=== PATIENT | female | born 1995 | race Caucasian/White ===

== ENCOUNTER 2016-10-14 17:25 | Emergency (ER) | payer MEDICAID | END 2016-10-14 19:04 | disposition home or self-care (01) | DX: N30.01 Acute cystitis with hematuria (principal); F17.200 Nicotine dependence, unspecified, uncomplicated ==

== ENCOUNTER 2017-07-28 13:45 | Emergency (ER) | payer MEDICAID ==
[2017-07-28 14:11] LABS: BILIRUBIN,URINE NEGATIVE (NEGATIVE)
[2017-07-28 14:13] LABS: UA CHARGE (STRIP ONLY) YES; UR CULTURE IF IND NOT INDICATED
--- NOTE | 2017-07-28 14:20 | ED Physician Documentation ---
PD HPI FEMALE - Stated complaint Stated Complaint: FEMALE - Chief complaint Chief Complaint: Abd Pain - History obtained from History obtained from: Patient - History of Present Illness Timing - onset: How many days ago (3) Timing - duration: Days (3) Timing - details: Gradual onset, Still present Associated symptoms: Chest/shoulder pain, Pelvic pain, Vaginal discharge, Dysuria Contributing factors: No: Similar symptoms before: Has not had sx before Recently seen: Not recently seen - Additional information Additional information: 22 y/o female has developed pain in the right lower quadrant/suprapubic area with nausea and chest pain. She is mid cycle and does not have a history of ovarian cyst. She is active with her boyfriend and does not use condoms. She is concerned about STD and UTI. Review of Systems Constitutional: reports: Myalgias, Fatigue. denies: Fever, Chills Eyes: denies: Decreased vision Ears: denies: Ear pain Nose: denies: Rhinorrhea / runny nose, Congestion Throat: denies: Dental pain / toothache, Sore throat Cardiac: denies: Chest pain / pressure, Palpitations Respiratory: denies: Dyspnea, Cough GI: reports: Nausea. denies: Abdominal Pain, Constipation, Diarrhea : reports: Frequency, Discharge. denies: Dysuria, Vaginal bleeding Skin: denies: Rash Musculoskeletal: denies: Neck pain, Back pain, Extremity pain PD PAST MEDICAL HISTORY - Past Medical History Psych: Anxiety - Past Surgical History Past Surgical History: No - Present Medications Home Medications: Ambulatory Orders Medication Instructions Recorded Confirmed No Known Home Medications [No 07/28/17 07/28/17 Known Home Medications] - Allergies Allergies/Adverse Reactions: Allergies Allergy/AdvReac Type Severity Reaction Status Date / Time No Known Drug Allergies Allergy Verified 08/20/15 19:44 - Social History Does the pt smoke?: Yes Smoking Status: Current every day smoker Does the pt drink ETOH?: No Does the pt have substance abuse?: No PD ED PE NORMAL - Vitals Vital signs reviewed: Yes (hypertensive) - General General: Alert and oriented X 3, No acute distress, Well developed/nourished - HEENT HEENT: Atraumatic, PERRL, EOMI - Neck Neck: Supple, no meningeal sign - Cardiac Cardiac: RRR, No murmur - Respiratory Respiratory: No respiratory distress, Clear bilaterally - Abdomen Abdomen: Normal bowel sounds, Soft, Non tender - Female Female : Juvenile Justice Officer present (Charleen), Other (There is a thin white discharge and the cervix is not friable. There is no cervical mucopus and on bimanual exam there is no cervical motion tenderness. ) - Back Back: No CVA TTP, No spinal TTP - Derm Derm: Normal color, No rash - Extremities Extremities: No deformity, No edema - Neuro Neuro: Alert and oriented X 3, No motor deficit, No sensory deficit, Normal speech - Psych Psych: Normal mood, Normal affect Results - Vitals Vitals: Vital Signs - 24 hr 07/28/17 13:50 Temperature 36.6 C Heart Rate 98 Respiratory 18 Rate Blood Pressure 137/87 H O2 Saturation 97 Oxygen O2 Source Room air - Labs Labs: Laboratory Tests 07/28/17 07/28/17 07/28/17 14:00 14:00 14:35 WBC 4.6 L RBC 4.57 Hgb 13.7 Hct 40.4 MCV 88.2 MCH 30.0 MCHC 34.0 RDW 12.5 Plt Count 248 MPV 7.4 L Neut # 2.5 Lymph # 1.4 L [place] # 0.5 Eos # 0.2 Baso # 0.0 Absolute Nucleated RBC 0.00 Nucleated RBC % 0.1 Sodium Potassium Chloride Carbon Dioxide Anion Gap BUN Creatinine Estimated GFR (MDRD) Glucose Calcium Total Bilirubin AST ALT Alkaline Phosphatase Total Protein Albumin Globulin Albumin/Globulin Ratio Lipase Urine Color YELLOW Urine Clarity CLEAR Urine pH 6.0 Ur Specific [place] 1.025 1.020 Urine Protein NEGATIVE Urine Glucose (UA) NEGATIVE Urine Ketones NEGATIVE Urine Occult Blood NEGATIVE Urine Nitrite NEGATIVE Urine Bilirubin NEGATIVE Urine Urobilinogen 0.2 (NORMAL) Ur Leukocyte Esterase NEGATIVE Ur Microscopic Review NOT INDICATED Urine Culture Comments NOT INDICATED Urine HCG, Qual NEGATIVE 07/28/17 14:35 WBC RBC Hgb Hct MCV MCH MCHC RDW Plt Count MPV Neut # Lymph # [place] # Eos # Baso # Absolute Nucleated RBC Nucleated RBC % Sodium 139 Potassium 3.6 Chloride 104 Carbon Dioxide 26 Anion Gap 9.0 BUN 11 Creatinine 0.8 Estimated GFR (MDRD) 89 Glucose 102 H Calcium 9.4 Total Bilirubin 1.1 H AST 15 ALT 13 Alkaline Phosphatase 41 L Total Protein 7.3 Albumin 4.4 Globulin 2.9 Albumin/Globulin Ratio 1.5 Lipase 21 L Urine Color Urine Clarity Urine pH Ur Specific [place] Urine Protein Urine Glucose (UA) Urine Ketones Urine Occult Blood Urine Nitrite Urine Bilirubin Urine Urobilinogen Ur Leukocyte Esterase Ur Microscopic Review Urine Culture Comments Urine HCG, Qual - Rads (name of study) pelvic ultrasound Radiology: Prelim report reviewed (Impression: Negative), EMP read indepedently , See rad report PD MEDICAL DECISION MAKING - ED course Complexity details: reviewed results, re-evaluated patient, considered differential, d/w patient ED course: 22-year-old female with some pelvic pain some dyspareunia and discharge has a fairly benign pelvic examination with some slight discharge and no cervical mucopus and no significant cervical motion tenderness. She does acknowledge that she is concerned about chlamydia as her boyfriend did sleep with someone else and she has slept with him since. Her pelvic ultrasound is unremarkable and her pain is somewhat better here this afternoon. She is treated for chlamydia with 250 mg Rocephin and 1 g of azithromycin and a specimen was sent to the laboratory. Departure - Departure Disposition: 01 Home, Self Care Clinical Impression: Pelvic pain Condition: Stable Instructions: ED Chlamydia Female Follow-Up: Your, doctor as planned [Other] Comments: Today we have obtained a specimen for testing for chlamydia and GC. Results of this should be available in 2-3 days. You have been treated for this.
[2017-07-28 14:41] LABS: BASOPHILS % (AUTO) 1.1 %; EOSINOPHILS # (AUTO) 0.2 10^3/uL (0.0-0.7); EOSINOPHILS % (AUTO) 3.5 %; HCT - HEMATOCRIT 40.4 % (37.0-47.0); HGB - HEMOGLOBIN 13.7 g/dL (12.0-16.0); LYMPHOCYTES # (AUTO) 1.4 10^3/uL (1.5-3.5); MEAN CORPUSCULAR VOLUME 88.2 fL (81.0-99.0); MEAN PLATELET VOLUME 7.4 fL (7.9-10.8); MONOCYTES # (AUTO) 0.5 10^3/uL (0.0-1.0); MONOCYTES % (AUTO) 9.9 %; NEUTROPHILS # (AUTO) 2.5 10^3/uL (1.5-6.6); NEUTROPHILS % (AUTO) 54.5 %; NUCLEATED RED BLOOD CELLS AUTO 0.1 /100WBC; RED BLOOD COUNT 4.57 10^6/uL (4.20-5.40); RED CELL DISTRIBUTION WIDTH 12.5 % (12.0-15.0); UNCORRECTED WHITE BLOOD COUNT 4.6 x10^3/uL; WHITE BLOOD COUNT 4.6 x10^3/uL (4.8-10.8)
[2017-07-28 14:48] LABS: HCG UR QUAL NEGATIVE
[2017-07-28 14:55] LABS: ALBUMIN/GLOBULIN RATIO 1.5 (1.0-2.2); BILIRUBIN,TOTAL 1.1 mg/dL (0.2-1.0); CALCIUM 9.4 mg/dL (8.5-10.3); CREATININE 0.8 mg/dL (0.4-1.0); POTASSIUM 3.6 mmol/L (3.5-5.0); TOTAL PROTEIN 7.3 g/dL (6.7-8.2)
[2017-07-28] MEDS ORDERED: AZITHROMYCIN 250 MG TABLET PO STA (16:40)
[2017-07-28] MEDS ORDERED: cefTRIAXone 250 MG VIAL IM STA (16:40)
[2017-07-28] MEDS ORDERED: AZITHROMYCIN 100 MG/5 ML SYRINGE PO ONE (17:00)
[2017-07-28] MEDS ORDERED: LIDOCAINE 1% 2 ML VIAL ONE (17:00)
[2017-07-28] MEDS ORDERED: cefTRIAXone 250 MG VIAL ONE (17:01)
[2017-07-28 17:27] VITALS: BP 100/71
--- NOTE | 2017-07-29 13:22 | Ultrasound Report ---
EXAM: PELVIS ULTRASOUND 07/28/2017 COMPARISON: No comparison. INDICATION: Right lower quadrant pain. TECHNIQUE: Sonographic evaluation of the pelvis was performed using transabdominal and endovaginal t echnique. FINDINGS: Uterus appears normal in size, contour, and echogenicity without masses. Endometrial stri pe appears unremarkable measuring 5 mm. No free fluid. The ovaries appear normal without evidence of mass, apart from a simple-appearing cyst in the left ov marquita that measures 1.4 cm. The ovaries demonstrate normal color and spectral Doppler flow. IMPRESSION: ESSENTIALLY NEGATIVE PELVIS ULTRASOUND. JOB #: [id number] EXT JOB #:
== END 2017-07-28 17:43 | disposition home or self-care (01) ==
LOC: ED 13:45
DX: R10.2 Pelvic and perineal pain (principal); N94.10 Unspecified dyspareunia; F17.200 Nicotine dependence, unspecified, uncomplicated
CPT/HCPCS: 36415; 76830; 76856; 80053; 81003; 81025; 83690; 85025; 87491; 87591; 93976; 96372; 99283; A9270; 81001; 87086

== ENCOUNTER 2017-07-31 14:14 | Outpatient (CLI) | payer MEDICAID ==
[2017-07-31 18:46] LABS: BASOPHILS % (AUTO) 0.7 %; EOSINOPHILS # (AUTO) 0.1 10^3/uL (0.0-0.7); EOSINOPHILS % (AUTO) 2.3 %; HCT - HEMATOCRIT 42.3 % (37.0-47.0); HGB - HEMOGLOBIN 14.2 g/dL (12.0-16.0); LYMPHOCYTES # (AUTO) 1.7 10^3/uL (1.5-3.5); LYMPHOCYTES % (AUTO) 25.5 %; MEAN CORPUSCULAR HEMOGLOBIN 30.2 pg (27.0-31.0); MEAN CORPUSCULAR HGB CONC 33.7 g/dL (32.0-36.0); MEAN CORPUSCULAR VOLUME 89.8 fL (81.0-99.0); MEAN PLATELET VOLUME 8.2 fL (7.9-10.8); MONOCYTES # (AUTO) 0.5 10^3/uL (0.0-1.0); MONOCYTES % (AUTO) 7.7 %; NEUTROPHILS # (AUTO) 4.2 10^3/uL (1.5-6.6); NEUTROPHILS % (AUTO) 63.8 %; NUCLEATED RED BLOOD CELLS AUTO 0.1 /100WBC; RED CELL DISTRIBUTION WIDTH 12.8 % (12.0-15.0); UNCORRECTED WHITE BLOOD COUNT 6.5 x10^3/uL; WHITE BLOOD COUNT 6.5 x10^3/uL (4.8-10.8)
[2017-07-31 19:33] LABS: BILIRUBIN,TOTAL 1.5 mg/dL (0.2-1.0); BUN - BLOOD UREA NITROGEN 11 mg/dL (6-20); CALCIUM 9.6 mg/dL (8.5-10.3); CARBON DIOXIDE - CO2 27 mmol/L (21-32); CHLORIDE 103 mmol/L (101-111); CREATININE 0.7 mg/dL (0.4-1.0); GFR - MDRD 104 (>89); GLUCOSE 87 mg/dL (70-100); POTASSIUM 3.7 mmol/L (3.5-5.0); SODIUM 139 mmol/L (135-145); TOTAL PROTEIN 7.8 g/dL (6.7-8.2)
[2017-07-31 19:34] LABS: ALBUMIN/GLOBULIN RATIO 1.4 (1.0-2.2); CHOL/HDL RATIO 2.3 (<4.4); CHOLESTEROL 123 mg/dL; HDL CHOLESTEROL 53 mg/dL; LDL/HDL RATIO 1.2 (<4.4); TRIGLYCERIDES 46 mg/dL; VLDL CHOLESTEROL 9 mg/dL
== END 2017-07-31 14:15 | disposition home or self-care (01) ==
LOC: LAB.N 14:14
PROVIDERS: ATTEND Nurse Practitioner Gerontology
DX: Z13.9 Encounter for screening, unspecified (principal)
CPT/HCPCS: 36415; 80053; 80061; 84443; 85025

== ENCOUNTER 2017-09-25 14:45 | Outpatient (CLI) | payer MEDICAID | END 2017-09-25 15:00 | disposition home or self-care (01) | LOC: RT.N 14:45 | PROVIDERS: ATTEND Nurse Practitioner Gerontology | DX: I49.9 Cardiac arrhythmia, unspecified (principal) | CPT/HCPCS: 93005 ==

== ENCOUNTER 2017-09-25 15:25 | Outpatient (CLI) | payer MEDICAID ==
[2017-09-25 18:42] LABS: BASOPHILS % (AUTO) 0.7 %; EOSINOPHILS # (AUTO) 0.1 10^3/uL (0.0-0.7); EOSINOPHILS % (AUTO) 1.4 %; HCT - HEMATOCRIT 40.2 % (37.0-47.0); HGB - HEMOGLOBIN 13.4 g/dL (12.0-16.0); LYMPHOCYTES # (AUTO) 1.7 10^3/uL (1.5-3.5); MEAN CORPUSCULAR HEMOGLOBIN 30.5 pg (27.0-31.0); MEAN CORPUSCULAR HGB CONC 33.4 g/dL (32.0-36.0); MEAN CORPUSCULAR VOLUME 91.3 fL (81.0-99.0); MONOCYTES # (AUTO) 0.6 10^3/uL (0.0-1.0); NEUTROPHILS # (AUTO) 4.1 10^3/uL (1.5-6.6); NEUTROPHILS % (AUTO) 62.9 %; NUCLEATED RED BLOOD CELLS AUTO 0.1 /100WBC; UNCORRECTED WHITE BLOOD COUNT 6.5 x10^3/uL; WHITE BLOOD COUNT 6.5 x10^3/uL (4.8-10.8)
== END 2017-09-25 15:26 | disposition home or self-care (01) ==
LOC: LAB.N 15:25
PROVIDERS: ATTEND Nurse Practitioner Gerontology
DX: R58 Hemorrhage, not elsewhere classified (principal)
CPT/HCPCS: 36415; 85025

== ENCOUNTER 2018-03-07 17:14 | Emergency (ER) | payer MEDICAID ==
[2018-03-07 18:38] LABS: BILIRUBIN,URINE NEGATIVE (NEGATIVE); CLARITY,URINE BLOODY (CLEAR); GLUCOSE, URINE (UA) NEGATIVE (NEGATIVE); KETONES,URINE (UA) NEGATIVE (NEGATIVE); LEUKOCYTE ESTERASE, URINE NEGATIVE (NEGATIVE); NITRITE,URINE NEGATIVE (NEGATIVE); OCCULT BLOOD,URINE LARGE (NEGATIVE); PROTEIN,URINE >=300 mg/dL (NEGATIVE); UROBILINOGEN,URINE 0.2 (NORMAL) E.U./dL (NORMAL)
[2018-03-07 18:51] LABS: BACTERIA,URINE None Seen /HPF (None Seen); RBC,URINE TNTC /HPF (0-5); SQUAMOUS EPITHELIAL CELL,UR NONE SEEN (<= Few)
--- NOTE | 2018-03-07 19:35 | ED Physician Documentation ---
PD HPI FEMALE - Stated complaint Stated Complaint: FEMALE - Chief complaint Chief Complaint: UTI - History obtained from History obtained from: Patient - History of Present Illness Timing - onset: How many weeks ago (had UTI symptoms 2 weeks ago and was Rx with Macrobid, which she took irregularly (ostly once daily instead of twice) but was improved and now symptoms back again the past couple of days. Denies vaginal discharge. Started her period yesterday as well.) Timing - details: Gradual onset, Waxing and waning Associated symptoms: Vaginal bleeding (menstrual started yesterday), Dysuria. No: Fever, Vaginal discharge, Genital sore/lesion, Urinary frequency Contributing factors: No: Exposed to STD Similar symptoms before: Diagnosis (UTI) Recently seen: Clinic (2 weeks ago with Dx UTI on UA. Says she had some blood tests too. No pelvic exam at the time.) Review of Systems Constitutional: denies: Fever, Chills Throat: denies: Sore throat Respiratory: denies: Cough GI: denies: Abdominal Pain, Nausea, Vomiting, Diarrhea : reports: Dysuria, Frequency, LMP (current). denies: Discharge Skin: denies: Rash, Lesions PD PAST MEDICAL HISTORY - Past Medical History Past Medical History: Yes Cardiovascular: None Respiratory: None ELECTRONICS SCALE TESTER: None Psych: Anxiety - Past Surgical History Past Surgical History: No - Present Medications Home Medications: Ambulatory Orders Medication Instructions Recorded Confirmed Phenazopyridine [Pyridium] 200 mg PO TID PRN #15 tablet 03/07/18 Sulfamethox/Trimeth 800/160 1 each PO BID #14 tablet 03/07/18 [Bactrim Ds 800/160] - Allergies Allergies/Adverse Reactions: Allergies Allergy/AdvReac Type Severity Reaction Status Date / Time No Known Drug Allergies Allergy Verified 08/20/15 19:44 - Social History Does the pt smoke?: No Smoking Status: Never smoker Does the pt drink ETOH?: Yes Does the pt have substance abuse?: No - Immunizations Immunizations are current?: Yes PD ED PE NORMAL - Vitals Vital signs reviewed: Yes - General General: Alert and oriented X 3, No acute distress, Well developed/nourished - HEENT HEENT: Pharynx benign - Neck Neck: Supple, no meningeal sign, No adenopathy - Cardiac Cardiac: RRR, No murmur - Respiratory Respiratory: Clear bilaterally - Abdomen Abdomen: Soft, Non tender - Female Female : Biomass Plant Technician present, Other (some menstrual blood in vault, otherwise no signs of sores nor infection. ) - Rectal Rectal: Deferred - Back Back: No CVA TTP - Derm Derm: Normal color, Warm and dry, No rash Results - Vitals Vitals: Vital Signs - 24 hr 03/07/18 20:44 Temperature 36.5 C Heart Rate 58 L Respiratory 18 Rate Blood Pressure 127/82 H O2 Saturation 100 Oxygen O2 Source Room air - Labs Labs: Microbiology 03/07/18 20:30 Wet Prep - Final Genital - Cervix Laboratory Tests 03/07/18 18:05 Urine Color RED/BLOODY Urine Clarity BLOODY Urine pH 6.0 Ur Specific [place] >=1.030 H Urine Protein >=300 H Urine Glucose (UA) NEGATIVE Urine Ketones NEGATIVE Urine Occult Blood LARGE H Urine Nitrite NEGATIVE Urine Bilirubin NEGATIVE Urine Urobilinogen 0.2 (NORMAL) Ur Leukocyte Esterase NEGATIVE Urine RBC TNTC H Urine WBC 0-3 Ur Squamous Epith Cells NONE SEEN Urine Bacteria None Seen Ur Microscopic Review INDICATED Urine Culture Comments NOT INDICATED PD MEDICAL DECISION MAKING - ED course Complexity details: reviewed results, considered differential (her UA does not show obvious infection. So consider vaginitis instead, but then her vaginal exam is normal appearing except for menses. Consider interstitial cystitis, but can treat for UTI in case. ), d/w patient Departure - Departure Disposition: 01 Home, Self Care Clinical Impression: Cystitis, Dysuria Condition: Stable Record reviewed to determine appropriate education?: Yes Instructions: ED Dysuria Uncertain Cause Follow-Up: Inna Cid ARNP [Primary Care Provider] - Prescriptions: Phenazopyridine [Pyridium] 200 mg PO TID PRN #15 tablet PRN Reason: Pain Sulfamethox/Trimeth 800/160 [Bactrim Ds 800/160] 1 each PO BID #14 tablet Comments: Your urine sample did not show obvious signs of infection. However the vaginal exam did not show any other obvious cause for your dysuria such as vaginitis. Presume than that you do have a developing bladder infection and we will treated with Bactrim twice daily for a week. He can use phenazopyridine as well for the discomfort. Recheck if not improved over the next several days to week. Discharge Date/Time: 03/07/18 20:46
[2018-03-07] MEDS ORDERED: SULFAMETH/TRIMETH DS 800/160 MG TABLET PO STA (20:38)
[2018-03-07 20:45] VITALS: BP 127/82
== END 2018-03-07 20:46 | disposition home or self-care (01) ==
LOC: ED 17:14
DX: N30.00 Acute cystitis without hematuria (principal)
CPT/HCPCS: 81001; 87210; 87491; 87591; 99283; A9270; 81003; 87086

== ENCOUNTER 2018-05-05 08:00 | Outpatient (CLI) | payer MEDICAID ==
[2018-05-05 12:33] LABS: BASOPHILS # (AUTO) 0.1 10^3/uL (0.0-0.1); BASOPHILS % (AUTO) 1.1 %; EOSINOPHILS # (AUTO) 0.3 10^3/uL (0.0-0.7); HGB - HEMOGLOBIN 13.4 g/dL (12.0-16.0); LYMPHOCYTES # (AUTO) 1.4 10^3/uL (1.5-3.5); LYMPHOCYTES % (AUTO) 28.5 %; MEAN CORPUSCULAR HGB CONC 34.5 g/dL (32.0-36.0); MEAN CORPUSCULAR VOLUME 89.9 fL (81.0-99.0); MONOCYTES # (AUTO) 0.5 10^3/uL (0.0-1.0); MONOCYTES % (AUTO) 9.3 %; NEUTROPHILS # (AUTO) 2.7 10^3/uL (1.5-6.6); NEUTROPHILS % (AUTO) 54.1 %; PLT - PLATELET COUNT 313 10^3/uL (130-450); RED BLOOD COUNT 4.33 10^6/uL (4.20-5.40); RED CELL DISTRIBUTION WIDTH 13.6 % (12.0-15.0)
[2018-05-05 13:13] LABS: ALBUMIN 4.4 g/dL (3.2-5.5); ALBUMIN/GLOBULIN RATIO 1.3 (1.0-2.2); BILIRUBIN,TOTAL 0.9 mg/dL (0.2-1.0); CALCIUM 9.3 mg/dL (8.5-10.3); CREATININE 0.6 mg/dL (0.4-1.0); TOTAL PROTEIN 7.9 g/dL (6.7-8.2)
== END 2018-05-05 08:01 ==
LOC: LAB.WCP 08:00
PROVIDERS: ATTEND Physician Assistant
DX: R07.89 Other chest pain (principal); R00.2 Palpitations
CPT/HCPCS: 36415; 80053; 83735; 84100; 84443; 85025

== ENCOUNTER 2018-05-20 12:51 | Outpatient (CLI) | payer MEDICAID ==
--- NOTE | 2018-05-20 16:36 | Ultrasound Report ---
Procedure Date: 05/20/2018 Accession Number: [id number] / [id number] Procedure: US - Head or Neck Soft Tissue CPT Code: FULL RESULT: EXAM: THYROID ULTRASOUND EXAM DATE: 05/20/2018 01:45 PM. CLINICAL HISTORY: Atypical chest pain, thyromegaly. COMPARISON: None. TECHNIQUE: Real time sonographic imaging of the thyroid was performed by the turn operator. Multiple merchandising representative static images were saved for review. FINDINGS: THYROID GLAND: The thyroid gland globally demonstrates a coarse heterogeneous echotexture with increased vascularity by color Doppler. Right Lobe: 5.2 x 2.0 x 1.9 cm, volume 10.3 cc. Right Lobe Nodules: A 0.5 cm nodule and a 0.4 cm nodule, both echogenic are identified. Left Lobe: 4.3 x 2.2 x 2.0 cm, volume 9.8 cc. Left Lobe Nodules: None. Isthmus: 0.4 cm AP. Isthmic Nodules: None. LYMPH NODES: No adenopathy demonstrated in the central or lateral compartment. OTHER: None. IMPRESSION: Heterogeneous hypervascular thyroid globally. Two echogenic thyroid nodules measuring up to 0.5 cm are very likely benign, recommend annual follow-up sonogram. Management recommendations are based on 2015 [place] [employer] Management Guidelines for Adult Patients with Thyroid Nodules and Differentiated Thyroid Cancer. RADIA
== END 2018-05-20 12:52 | disposition home or self-care (01) ==
LOC: DI 12:51
PROVIDERS: ATTEND Physician Assistant
DX: R07.89 Other chest pain (principal); E04.2 Nontoxic multinodular goiter
CPT/HCPCS: 76536; 93306

== ENCOUNTER 2018-06-22 13:37 | Outpatient (CLI) | payer MEDICAID ==
[2018-06-22 20:28] LABS: THYROID STIMULATING HORMONE 2.55 uIU/mL (0.34-5.60)
[2018-06-22 20:30] LABS: FREE T4 (FREE THYROXINE) 0.83 ng/dL (0.58-1.64)
== END 2018-06-22 13:38 | disposition home or self-care (01) ==
LOC: LAB.WCP 13:37
PROVIDERS: ATTEND Physician Assistant
DX: E03.9 Hypothyroidism, unspecified (principal)
CPT/HCPCS: 36415; 84439; 84443

== ENCOUNTER 2018-10-12 15:00 | Outpatient (CLI) | payer MEDICAID, OTHER | END 2018-10-12 23:59 | disposition home or self-care (01) | LOC: LAB.WCP 15:00 | PROVIDERS: ATTEND Family Medicine | DX: N39.0 Urinary tract infection, site not specified (principal) | CPT/HCPCS: 81001; 87086 ==

== ENCOUNTER 2019-03-02 20:20 | Emergency (ER) | payer OTHER ==
--- NOTE | 2019-03-02 20:32 | ED Physician Documentation ---
History of Present Illness - Stated complaint Stated Complaint: THROAT PX - Chief complaint Chief Complaint: Allergic Rx - History obtained from History obtained from: Patient - Additonal information Additional information: Patient is a previously healthy 24-year-old female with no known allergies presenting with concern for possible allergic reaction after she started amoxicillin earlier today. Following medication she noted scratchy throat, closing throat sensation, change in her voice, but no significant oral swelling, difficulty breathing, cough, or rash. Patient reports that she was at an urgent care and she had been feeling unwell for the past several weeks with generalized fatigue, chest congestion without productive cough or fever, and sore throat. Patient reports that her boyfriend has had similar symptoms. No other improving or worsening factors noted. Review of Systems Constitutional: denies: Fever Respiratory: denies: Dyspnea, Cough PD PAST MEDICAL HISTORY - Past Medical History Cardiovascular: None Respiratory: None MATHEMATICS LECTURER: None Psych: Anxiety - Past Surgical History Past Surgical History: No - Present Medications Home Medications: Ambulatory Orders Medication Instructions Recorded Confirmed Phenazopyridine [Pyridium] 200 mg PO TID PRN #15 tablet 03/07/18 Sulfamethox/Trimeth 800/160 1 each PO BID #14 tablet 03/07/18 [Bactrim Ds 800/160] predniSONE [Deltasone] 10 mg PO [id number] #42 tab 03/02/19 - Allergies Allergies/Adverse Reactions: Allergies Allergy/AdvReac Type Severity Reaction Status Date / Time No Known Drug Allergies Allergy Verified 03/02/19 20:27 - Social History Does the pt smoke?: No Smoking Status: Never smoker Does the pt drink ETOH?: Yes Does the pt have substance abuse?: No - Immunizations Immunizations are current?: Yes PD ED PE NORMAL - Vitals Vital signs reviewed: Yes - General General: Alert and oriented X 3, No acute distress, Well developed/nourished, Other (Speaking in full sentences) - HEENT HEENT: Atraumatic, Moist mucous membranes, Pharynx benign, Dentition benign, Other (No evidence of lip or oral swelling) - Cardiac Cardiac: RRR, No murmur - Respiratory Respiratory: No respiratory distress, Clear bilaterally - Abdomen Abdomen: Normal bowel sounds, Soft, Non tender, Non distended - Derm Derm: Normal color, Warm and dry, No rash - Extremities Extremities: No deformity, No tenderness to palpate - Neuro Neuro: Alert and oriented X 3, No motor deficit, No sensory deficit - Psych Psych: Normal mood, Normal affect Results - Vitals Vitals: Vital Signs - 24 hr 03/02/19 03/02/19 03/02/19 20:23 20:31 21:47 Temperature 37.2 C Heart Rate 100 93 Respiratory 14 17 18 Rate Blood Pressure 133/78 H 126/71 O2 Saturation 99 99 Oxygen O2 Source Room air - Labs Labs: Laboratory Tests 03/02/19 03/02/19 20:55 20:55 Infectious [place] Assay NEGATIVE Group A Strep Rapid Negative PD MEDICAL DECISION MAKING - ED course Complexity details: reviewed results, re-evaluated patient, considered differential, d/w patient ED course: Patient presenting with possible allergic reaction, although particularly mild. No signs of anaphylaxis or other respiratory distress. Do not feel patient will require epinephrine at this time. However, ordered Pepcid, Benadryl, and Solu-Medrol to address potential allergic reaction. Also feel that patient's symptoms could be an exacerbation of her underlying disease process particularly a viral illness including mononucleosis, URI, sinusitis, tonsillitis, pharyngitis, or pneumonia. Do plan to obtain further work-up with rapid strep test, mono test, and chest x-ray. Patient amenable to this plan. Otherwise, do not feel patient is experiencing an emergent condition that would require further invasive testing or work-up.Imaging and other testing returned negative. Patient continued to be monitored in ED without worsening symptoms or recurrence of allergic reaction. Feel that she is safe to discharge home. Discussed cessation of amoxicillin as feel this could be contributing to her possible allergic reaction otherwise do not find evidence to indicate that she has an infection that would require an antibiotic at this time.Discussed potential allergic reaction symptoms as well as [id number] medications for such and will prescribe steroids for home. Do not feel patient requires EpiPen's at this time. Also discussed strict return precautions and appropriate follow-up. Patient voiced understanding and is comfortable with discharge plan. Departure - Departure Disposition: Home, Self Care Clinical Impression: Allergic reaction Qualifiers: Encounter type: initial encounter Qualified Code(s): T78.40XA - Allergy, unspecified, initial encounter Condition: Good Instructions: ED Drug React Allergic Follow-Up: Cecy Santo PA [Primary Care Provider] - Within 3 Days Prescriptions: predniSONE [Deltasone] 10 mg PO [id number] #42 tab Comments: Recommend stopping amoxicillin. Please take steroids as prescribed and may use other [id number] medications such as Benadryl other antihistamines to help control allergic reaction. Please follow-up with your primary care physician in next 2 to 3 days and return to ED sooner if experience worsening symptoms or other concerns. Discharge Date/Time: 03/02/19 22:16
[2019-03-02] MEDS ORDERED: SODIUM CHLORIDE 0.9% 1,000 ML IV ONE (20:41)
[2019-03-02] MEDS ORDERED: methylPREDNISolone SUCCINATE 125 MG/2 ML VIAL IVP STA (20:41)
[2019-03-02] MEDS ORDERED: FAMOTIDINE 20 MG/2 ML VIAL IVP STA (20:41)
[2019-03-02] MEDS ORDERED: diphenhydrAMINE INJ 50 MG/ML VIAL IVP STA (20:41)
--- NOTE | 2019-03-02 21:12 | XRAY Report ---
Reason: cough Procedure Date: 03/02/2019 Accession Number: [id number] / [id number] Procedure: XR - Chest 2 View X-Ray CPT Code: 86299 FULL RESULT: EXAM: CHEST RADIOGRAPHY EXAM DATE: 03/02/2019 09:07 PM. CLINICAL HISTORY: Cough. COMPARISON: None. TECHNIQUE: 2 views. FINDINGS: Lungs/Pleura: No focal opacities evident. No pleural effusion. No pneumothorax. Normal volumes. Mediastinum: Heart and mediastinal contours are unremarkable. Other: None. IMPRESSION: Normal 2-view chest radiography. RADIA
[2019-03-02 23:08] VITALS: BP 119/70
== END 2019-03-02 23:18 | disposition home or self-care (01) ==
LOC: ED 20:20
DX: T78.40XA Allergy, unspecified, initial encounter (principal)
CPT/HCPCS: 36415; 71046; 86308; 87070; 87430; 96374; 99283; J1200

== ENCOUNTER 2019-03-17 13:43 | Outpatient (CLI) | payer OTHER ==
[2019-03-17 19:19] LABS: BASOPHILS % (AUTO) 0.3 %; EOSINOPHILS % (AUTO) 0.7 %; HGB - HEMOGLOBIN 13.4 g/dL (12.0-16.0); LYMPHOCYTES # (AUTO) 2.4 10^3/uL (1.5-3.5); LYMPHOCYTES % (AUTO) 34.4 %; MEAN CORPUSCULAR HEMOGLOBIN 30.3 pg (27.0-31.0); MEAN CORPUSCULAR HGB CONC 32.6 g/dL (32.0-36.0); MEAN CORPUSCULAR VOLUME 92.8 fL (81.0-99.0); MEAN PLATELET VOLUME 8.2 fL (7.9-10.8); MONOCYTES # (AUTO) 0.6 10^3/uL (0.0-1.0); MONOCYTES % (AUTO) 8.6 %; NEUTROPHILS # (AUTO) 3.9 10^3/uL (1.5-6.6); PLT - PLATELET COUNT 283 10^3/uL (130-450); RED BLOOD COUNT 4.42 10^6/uL (4.20-5.40); RED CELL DISTRIBUTION WIDTH 13.2 % (12.0-15.0)
[2019-03-17 19:23] LABS: ALBUMIN 4.5 g/dL (3.2-5.5); ALBUMIN/GLOBULIN RATIO 1.6 (1.0-2.2); CALCIUM 9.2 mg/dL (8.5-10.3); CREATININE 0.7 mg/dL (0.4-1.0); TOTAL PROTEIN 7.4 g/dL (6.7-8.2)
== END 2019-03-17 13:44 | disposition home or self-care (01) ==
LOC: LAB.WCP 13:43
PROVIDERS: ATTEND Physician Assistant
DX: Z51.81 Encounter for therapeutic drug level monitoring (principal); Z79.899 Other long term (current) drug therapy
CPT/HCPCS: 36415; 80053; 85025

== ENCOUNTER 2019-03-29 09:48 | Outpatient (CLI) | payer OTHER ==
[2019-03-29] MEDS ORDERED: IOVERSOL 320 100 ML VIAL IVP ONE ×2 (10:17→13:28)
[2019-03-29] MEDS ORDERED: IOVERSOL 320 50 ML VIAL ONE (10:17)
[2019-03-29] MEDS ORDERED: IOVERSOL 320 50 ML VIAL PO ONE (13:28)
--- NOTE | 2019-03-29 14:07 | CT Report ---
Reason: PROMINENT COCCYX WITH PAIN Procedure Date: 03/29/2019 Accession Number: [id number] / [id number] Procedure: CT - Abdomen/Pelvis W CPT Code: FULL RESULT: EXAM: CT ABDOMEN AND PELVIS EXAM DATE: 03/29/2019 11:22 AM. CLINICAL HISTORY: Prominent coccyx with pain. COMPARISONS: None. TECHNIQUE: Routine helical CT imaging was performed through the abdomen and pelvis. IV contrast: 90 mL Optiray 320. Enteric contrast: Yes. Reconstructions: Coronal and sagittal. In accordance with CT protocol optimization, one or more of the following dose reduction techniques were utilized for this exam: automated exposure control, adjustment of mA and/or KV based on patient size, or use of iterative reconstructive technique. FINDINGS: Lung Bases: Unremarkable. Liver: Normal. No masses. Gallbladder/Bile Ducts: Unremarkable. Spleen: Normal. Pancreas: Normal. Adrenal Glands: Normal. Kidneys: Normal. No masses or hydronephrosis. Peritoneal Cavity/Bowel: There is no bowel obstruction. There is no free fluid or free air. There is no lymphadenopathy. Pelvic Organs: An intrauterine device is in expected location. Vasculature: No aneurysms or other significant abnormality. Bones: There is posttraumatic deformity of the coccyx with C2 and 3 oriented horizontally at a 90 degree angle in relation to the normally aligned C1 coccygeal body. The finding is possibly not acute. Other: None. IMPRESSION: Coccyx fracture with deformity, possibly subacute or chronic. RADIA
== END 2019-03-29 09:49 | disposition home or self-care (01) ==
LOC: DI 09:48
PROVIDERS: ATTEND Surgery
DX: S32.2XXA Fracture of coccyx, initial encounter for closed fracture (principal); E04.1 Nontoxic single thyroid nodule; R59.0 Localized enlarged lymph nodes
CPT/HCPCS: 74177; 76536; Q9967

== ENCOUNTER 2019-03-29 09:52 | Outpatient (CLI) | payer OTHER ==
--- NOTE | 2019-03-29 15:03 | Ultrasound Report ---
Reason: SUBMANDIBULAR LYMPOH NODE, THYROID NODULE Procedure Date: 03/29/2019 Accession Number: [id number] / [id number] Procedure: US - Head or Neck Soft Tissue CPT Code: FULL RESULT: EXAM: THYROID ULTRASOUND EXAM DATE: 03/29/2019 12:12 PM. CLINICAL HISTORY: Enlarged right submandibular lymph node. Follow-up of thyroid nodules. COMPARISON: HEAD OR NECK SOFT TISSUE 05/20/2018 1:45 PM. TECHNIQUE: Real time sonographic imaging of the thyroid was performed by the autism tutor. Multiple patient support representative static images were saved for review. FINDINGS: THYROID GLAND: Parenchymal echotexture of the right and left lobes of the thyroid gland is symmetric. Previously seen increased heterogeneity and increased vascularity appears to have resolved. Right Lobe: 4.3 x 1.9 x 1.9 cm, volume 7.5 cc. Right Lobe Nodules: Previously noted nodules have decreased in conspicuity and are now barely perceptible, measuring up to 0.7 and 0.6 cm respectively in the lower pole of the right thyroid gland, solid and isoechoic to background parenchyma. Left Lobe: 4.7 x 1.5 x 1.6 cm, volume 5.3 cc. Left Lobe Nodules: None. Isthmus: 0.2 cm AP. Isthmic Nodules: None. LYMPH NODES: The right submandibular lymph nodes are prominent when compared to left submandibular nodes, 2.1 x 0.6 x 1.3 cm on the right compared to 1.5 x 0.5 x 1.1 cm on the left. Overall architecture of these nodes is similar to each other with preserved fatty hilum favoring reactive etiology. OTHER: None. IMPRESSION: Interval decrease in heterogeneous hypervascular appearance of the thyroid gland with previously seen nodules measuring up to 0.7 cm on today's exam now barely perceptible. Prominent right submandibular lymph node with preserved fatty hilum as described. Management recommendations are based on 2015 [place] [employer] Management Guidelines for Adult Patients with Thyroid Nodules and Differentiated Thyroid Cancer. RADIA
== END 2019-03-29 09:53 | disposition home or self-care (01) ==
LOC: DI 09:52
PROVIDERS: ATTEND Physician Assistant
DX: E04.1 Nontoxic single thyroid nodule (principal); R59.0 Localized enlarged lymph nodes
CPT/HCPCS: 76536

== ENCOUNTER 2019-09-20 11:37 | Outpatient (CLI) | payer OTHER ==
[2019-09-21 14:31] LABS: HIV AG/AB 4TH GEN NON-REACTIVE (NON-REACTIVE)
[2019-09-26 10:15] LABS: HEPATITIS C ANTIBODY Non-reactive
== END 2019-09-20 23:59 | disposition home or self-care (01) ==
LOC: LAB.WCP 11:37
PROVIDERS: ATTEND Nurse Practitioner Family
DX: Z11.3 Encounter for screening for infections with a predominantly sexual mode of transmission (principal)
CPT/HCPCS: 36415; 81599; 86592; 86803; 87389; 87491; 87591; 87661

== ENCOUNTER 2019-09-21 08:25 | Outpatient (CLI) | payer OTHER ==
[2019-09-21 12:59] LABS: BILIRUBIN,URINE NEGATIVE (NEGATIVE); GLUCOSE, URINE (UA) NEGATIVE (NEGATIVE); KETONES,URINE (UA) NEGATIVE (NEGATIVE); LEUKOCYTE ESTERASE, URINE NEGATIVE (NEGATIVE); NITRITE,URINE NEGATIVE (NEGATIVE); OCCULT BLOOD,URINE NEGATIVE (NEGATIVE); PROTEIN,URINE NEGATIVE (NEGATIVE); UROBILINOGEN,URINE 0.2 (NORMAL) E.U./dL (NORMAL)
[2019-09-21 13:01] LABS: CLARITY,URINE CLEAR (CLEAR)
[2019-09-21 21:25] LABS: TRICHOMONAS VAGINALIS DNA NEGATIVE (NEGATIVE)
== END 2019-09-21 23:59 | disposition home or self-care (01) ==
LOC: LAB.WCP 08:25
PROVIDERS: ATTEND Nurse Practitioner Family
DX: Z11.3 Encounter for screening for infections with a predominantly sexual mode of transmission (principal); N39.0 Urinary tract infection, site not specified
CPT/HCPCS: 81001; 81003; 87086; 87491; 87591; 87661

== ENCOUNTER 2019-12-09 19:08 | Emergency (ER) | payer OTHER ==
--- NOTE | 2019-12-09 19:26 | ED Physician Documentation ---
PD HPI FEMALE - Stated complaint Stated Complaint: PELVIC PX - Chief complaint Chief Complaint: Abd Pain - History obtained from History obtained from: Patient - History of Present Illness Timing - onset: How many months ago (1) Timing - details: Intermittant Pain level max: 6 Pain level max: 2 Associated symptoms: Pelvic pain. No: Fever Contributing factors: No: Recently seen: Clinic - Additional information Additional information: c/o 1 month of episodic pelvic cramping, "like period cramps" (per patient). occasionally associated with nausea. Seen at walk-in in [place], was sent to ED (), but left after waiting for few hours. Review of Systems Constitutional: denies: Fever, Chills, Sweats Cardiac: reports: Reviewed and negative Respiratory: reports: Reviewed and negative GI: reports: Abdominal Pain (pelvic cramping, not abdominal pain per se), Nausea. denies: Vomiting, Constipation, Diarrhea : denies: Dysuria, Frequency, Discharge, Now EGA Musculoskeletal: denies: Back pain PD PAST MEDICAL HISTORY - Past Medical History Cardiovascular: None Respiratory: None LOGISTICS SUPPORT: None Psych: Anxiety - Past Surgical History Past Surgical History: No - Present Medications Home Medications: Ambulatory Orders Medication Instructions Recorded Confirmed Levothyroxine Sodium 75 mcg PO DAILY 12/09/19 12/09/19 - Allergies Allergies/Adverse Reactions: Allergies Allergy/AdvReac Type Severity Reaction Status Date / Time amoxicillin Allergy Anaphylaxis Verified 12/09/19 19:20 - Social History Does the pt smoke?: No Smoking Status: Never smoker Does the pt drink ETOH?: Yes Does the pt have substance abuse?: No - Immunizations Immunizations are current?: Yes PD ED PE NORMAL - Vitals Vital signs reviewed: Yes - General General: Alert and oriented X 3, No acute distress, Well developed/nourished - Neck Neck: Supple, no meningeal sign - Cardiac Cardiac: RRR, No murmur - Respiratory Respiratory: No respiratory distress, Clear bilaterally - Abdomen Abdomen: Normal bowel sounds, Soft, Non tender, Non distended, No organomegaly - Back Back: No CVA TTP Results - Vitals Vitals: Vital Signs - 24 hr 12/09/19 12/09/19 12/09/19 19:15 20:27 21:57 Temperature 36.5 C Heart Rate 66 70 58 L Respiratory 18 16 16 Rate Blood Pressure 117/70 123/73 102/71 O2 Saturation 99 99 99 Oxygen O2 Source Room air - Labs Labs: Laboratory Tests 12/09/19 12/09/19 12/09/19 19:40 19:40 19:45 WBC 6.1 RBC 4.59 Hgb 14.2 Hct 42.4 MCV 92.4 MCH 30.9 MCHC 33.5 RDW 11.9 L Plt Count 312 MPV 9.7 Neut # (Auto) 3.2 Lymph # (Auto) 2.2 [place] # (Auto) 0.5 Eos # (Auto) 0.1 Baso # (Auto) 0.0 Absolute Nucleated RBC 0.00 Nucleated RBC % 0.0 Sodium Potassium Chloride Carbon Dioxide Anion Gap BUN Creatinine Estimated GFR (MDRD) Glucose Calcium Total Bilirubin AST ALT Alkaline Phosphatase Total Protein Albumin Globulin Albumin/Globulin Ratio Lipase Urine Color YELLOW Urine Clarity N Urine pH 8.0 H Ur Specific [place] 1.020 1.020 Urine Protein NEGATIVE Urine Glucose (UA) NEGATIVE Urine Ketones NEGATIVE Urine Occult Blood NEGATIVE Urine Nitrite NEGATIVE Urine Bilirubin NEGATIVE Urine Urobilinogen 0.2 (NORMAL) Ur Leukocyte Esterase NEGATIVE Ur Microscopic Review NOT INDICATED Urine Culture Comments NOT INDICATED Urine HCG, Qual NEGATIVE 12/09/19 19:45 WBC RBC Hgb Hct MCV MCH MCHC RDW Plt Count MPV Neut # (Auto) Lymph # (Auto) [place] # (Auto) Eos # (Auto) Baso # (Auto) Absolute Nucleated RBC Nucleated RBC % Sodium 139 Potassium 3.3 L Chloride 103 Carbon Dioxide 26 Anion Gap 10.0 BUN 7 Creatinine 0.6 Estimated GFR (MDRD) 122 Glucose 115 H Calcium 9.4 Total Bilirubin 0.6 AST 14 ALT 11 Alkaline Phosphatase 42 Total Protein 8.0 Albumin 4.8 Globulin 3.2 Albumin/Globulin Ratio 1.5 Lipase 36 Urine Color Urine Clarity Urine pH Ur Specific [place] Urine Protein Urine Glucose (UA) Urine Ketones Urine Occult Blood Urine Nitrite Urine Bilirubin Urine Urobilinogen Ur Leukocyte Esterase Ur Microscopic Review Urine Culture Comments Urine HCG, Qual - Rads (name of study) pelvic US Radiology: Prelim report reviewed, See rad report PD MEDICAL DECISION MAKING - ED course Complexity details: reviewed results, re-evaluated patient, considered differential, d/w patient Departure - Departure Disposition: 01 Home, Self Care Clinical Impression: Abdominal pain Condition: Good Instructions: ED Pelvic Pain [facility] Follow-Up: Cecy Santo PA [Primary Care Provider] - Discharge Date/Time: 12/09/19 22:45
[2019-12-09 20:00] LABS: BASOPHILS % (AUTO) 0.7 %; EOSINOPHILS # (AUTO) 0.1 10^3/uL (0.0-0.7); EOSINOPHILS % (AUTO) 2.1 %; HGB - HEMOGLOBIN 14.2 g/dL (12.0-16.0); LYMPHOCYTES # (AUTO) 2.2 10^3/uL (1.5-3.5); LYMPHOCYTES % (AUTO) 36.8 %; MEAN CORPUSCULAR HEMOGLOBIN 30.9 pg (27.0-31.0); MEAN CORPUSCULAR HGB CONC 33.5 g/dL (32.0-36.0); MEAN CORPUSCULAR VOLUME 92.4 fL (81.0-99.0); MEAN PLATELET VOLUME 9.7 fL (7.9-10.8); MONOCYTES # (AUTO) 0.5 10^3/uL (0.0-1.0); MONOCYTES % (AUTO) 7.6 %; NEUTROPHILS # (AUTO) 3.2 10^3/uL (1.5-6.6); NEUTROPHILS % (AUTO) 52.5 %; PLT - PLATELET COUNT 312 10^3/uL (130-450); RED BLOOD COUNT 4.59 10^6/uL (4.20-5.40); RED CELL DISTRIBUTION WIDTH 11.9 % (12.0-15.0); WHITE BLOOD COUNT 6.1 x10^3/uL (4.8-10.8)
[2019-12-09 20:01] LABS: BILIRUBIN,URINE NEGATIVE (NEGATIVE); GLUCOSE, URINE (UA) NEGATIVE (NEGATIVE); KETONES,URINE (UA) NEGATIVE (NEGATIVE); LEUKOCYTE ESTERASE, URINE NEGATIVE (NEGATIVE); NITRITE,URINE NEGATIVE (NEGATIVE); OCCULT BLOOD,URINE NEGATIVE (NEGATIVE); PROTEIN,URINE NEGATIVE (NEGATIVE); UROBILINOGEN,URINE 0.2 (NORMAL) E.U./dL (NORMAL)
[2019-12-09 20:05] LABS: CLARITY,URINE N (CLEAR)
[2019-12-09 20:06] LABS: HCG UR QUAL NEGATIVE
[2019-12-09 20:16] LABS: ALBUMIN 4.8 g/dL (3.2-5.5); ALBUMIN/GLOBULIN RATIO 1.5 (1.0-2.2); BILIRUBIN,TOTAL 0.6 mg/dL (0.2-1.0); CALCIUM 9.4 mg/dL (8.5-10.3); CREATININE 0.6 mg/dL (0.4-1.0)
--- NOTE | 2019-12-09 21:45 | Ultrasound Report ---
Reason: pelvic pain, R>L Procedure Date: 12/09/2019 Accession Number: [id number] / [id number] Procedure: US - Pelvic w/Doppler Complete CPT Code: Final Report FULL RESULT: EXAM: PELVIC ULTRASOUND EXAM DATE: 12/09/2019 09:36 PM. CLINICAL HISTORY: Bilateral pelvic pain, right greater than left COMPARISON: None. TECHNIQUE: Realtime transabdominal pelvic scan performed to identify the uterus and adnexa and as an overview of other pelvic structures, followed by transvaginal scan to provide greater detail of the uterus and adnexa, with static image documentation. FINDINGS: Uterus: 8.1 x 3.3 x 4.7 cm, volume 66.3 cc. Anteverted position. Normal overall size and echotexture. Masses: None. Endometrium: 2.5 mm. An intrauterine device is normally positioned. Cervix: Unremarkable. Right Ovary: 3.7 x 2.5 x 2.1 cm, volume 10.6 cc. Normal echotexture and blood flow. A small follicle is seen. Peak systolic velocity 15.6 cm/s. Resistive index: 0.60. Left Ovary: 4.2 x 1.6 x 2.2 cm, volume 7.6 cc. Normal echotexture and blood flow. Peak systolic velocity 38.1 cm/s. Resistive index: 0.66. Free Fluid: None. Other: None. IMPRESSION: Normal pelvic ultrasound. RADIA
[2019-12-09 21:58] VITALS: BP 102/71
[2019-12-09] MEDS ORDERED: POTASSIUM CHLORIDE 20 MEQ TABLET PO STA (22:33)
[2019-12-10 17:59] LABS: TRICHOMONAS VAGINALIS DNA NEGATIVE (NEGATIVE)
== END 2019-12-09 22:45 | disposition home or self-care (01) ==
LOC: ED 19:08
DX: R10.2 Pelvic and perineal pain (principal); R11.0 Nausea
CPT/HCPCS: 36415; 76856; 80053; 81003; 81025; 83690; 85025; 87491; 87591; 87661; 93975; 99284; A9270; 81001; 87086

== ENCOUNTER 2019-12-14 08:00 | Outpatient (CLI) | payer OTHER | END 2019-12-14 23:59 | disposition home or self-care (01) | LOC: LAB.WCP 08:00 | PROVIDERS: ATTEND Physician Assistant | DX: E03.9 Hypothyroidism, unspecified (principal) | CPT/HCPCS: 36415; 84443 ==

== ENCOUNTER 2019-12-27 08:00 | Outpatient (CLI) | payer OTHER ==
[2019-12-27 21:36] LABS: TRICHOMONAS VAGINALIS DNA NEGATIVE (NEGATIVE)
== END 2019-12-27 23:59 | disposition home or self-care (01) ==
LOC: LAB.R 08:00
PROVIDERS: ATTEND Physician Assistant Medical
DX: R30.0 Dysuria (principal); Z11.3 Encounter for screening for infections with a predominantly sexual mode of transmission
CPT/HCPCS: 87086; 87491; 87591; 87661

== ENCOUNTER 2020-07-09 11:57 | Outpatient (CLI) | payer OTHER ==
[2020-07-09 16:24] LABS: BILIRUBIN,URINE NEGATIVE (NEGATIVE); GLUCOSE, URINE (UA) NEGATIVE (NEGATIVE); KETONES,URINE (UA) NEGATIVE (NEGATIVE); LEUKOCYTE ESTERASE, URINE NEGATIVE (NEGATIVE); NITRITE,URINE NEGATIVE (NEGATIVE); OCCULT BLOOD,URINE NEGATIVE (NEGATIVE); PH,URINE 6.5 PH (5.0-7.5); PROTEIN,URINE NEGATIVE (NEGATIVE); UROBILINOGEN,URINE 0.2 (NORMAL) E.U./dL (NORMAL)
[2020-07-09 16:36] LABS: CLARITY,URINE CLEAR (CLEAR)
[2020-07-09 16:45] LABS: BACTERIA,URINE Few /HPF (None Seen); MUCUS,URINE Few Strands; RBC,URINE 0-5 /HPF (0-5); SQUAMOUS EPITHELIAL CELL,UR MOD Squamous (<= Few)
== END 2020-07-09 23:59 | disposition home or self-care (01) ==
LOC: LAB.R 11:57
PROVIDERS: ATTEND Physician Assistant Medical
DX: R30.0 Dysuria (principal)
CPT/HCPCS: 81001; 87086

== ENCOUNTER 2020-07-12 07:00 | Outpatient (CLI) | payer OTHER ==
[2020-07-13 14:06] LABS: HEPATITIS C ANTIBODY NON-REACTIVE (NON-REACTIVE)
[2020-07-13 15:25] LABS: HIV AG/AB 4TH GEN NON-REACTIVE (NON-REACTIVE)
[2020-07-14 13:56] LABS: HSV 1 IGG TYPE SPECIFIC AB <0.90 index; HSV 2 IGG TYPE SPECIFIC AB <0.90 index
== END 2020-07-12 23:59 | disposition home or self-care (01) ==
LOC: LAB.WCP 07:00
PROVIDERS: ATTEND Family Medicine
DX: Z11.3 Encounter for screening for infections with a predominantly sexual mode of transmission (principal)
CPT/HCPCS: 36415; 81599; 86592; 86695; 86696; 86803; 87389

== ENCOUNTER 2020-07-27 13:57 | Outpatient (CLI) | payer OTHER | END 2020-07-27 13:58 | disposition home or self-care (01) | LOC: COV 13:57 | PROVIDERS: ATTEND Family Medicine | DX: R05 Cough (principal); Z20.828 Contact with and (suspected) exposure to other viral communicable diseases; R06.02 Shortness of breath; R53.83 Other fatigue; R09.81 Nasal congestion; J02.9 Acute pharyngitis, unspecified ==

== ENCOUNTER 2020-12-20 08:00 | Outpatient (CLI) | payer OTHER ==
[2020-12-20 11:32] LABS: BASOPHILS # (AUTO) 0.1 10^3/uL (0.0-0.1); BASOPHILS % (AUTO) 0.9 %; EOSINOPHILS # (AUTO) 0.2 10^3/uL (0.0-0.7); EOSINOPHILS % (AUTO) 3.2 %; HCT - HEMATOCRIT 43.1 % (37.0-47.0); HGB - HEMOGLOBIN 14.2 g/dL (12.0-16.0); LYMPHOCYTES # (AUTO) 1.9 10^3/uL (1.5-3.5); LYMPHOCYTES % (AUTO) 35.9 %; MEAN CORPUSCULAR HEMOGLOBIN 30.9 pg (27.0-31.0); MEAN CORPUSCULAR HGB CONC 32.9 g/dL (32.0-36.0); MEAN CORPUSCULAR VOLUME 93.7 fL (81.0-99.0); MEAN PLATELET VOLUME 9.6 fL (7.9-10.8); MONOCYTES # (AUTO) 0.4 10^3/uL (0.0-1.0); MONOCYTES % (AUTO) 8.2 %; NEUTROPHILS # (AUTO) 2.8 10^3/uL (1.5-6.6); NEUTROPHILS % (AUTO) 51.4 %; PLT - PLATELET COUNT 335 10^3/uL (130-450); RED CELL DISTRIBUTION WIDTH 11.9 % (12.0-15.0); WHITE BLOOD COUNT 5.4 x10^3/uL (4.8-10.8)
[2020-12-20 12:35] LABS: ALBUMIN 4.2 g/dL (3.2-5.5); ALBUMIN/GLOBULIN RATIO 1.3 (1.0-2.2); CREATININE 0.6 mg/dL (0.4-1.0); POTASSIUM 4.2 mmol/L (3.5-5.0); TOTAL PROTEIN 7.4 g/dL (6.7-8.2)
[2020-12-20 12:44] LABS: THYROID STIMULATING HORMONE 0.18 uIU/mL (0.34-5.60)
[2020-12-20 13:26] LABS: FREE T4 (FREE THYROXINE) 1.17 ng/dL (0.58-1.64)
== END 2020-12-20 23:59 | disposition home or self-care (01) ==
LOC: LAB.WCP 08:00
PROVIDERS: ATTEND Nurse Practitioner Family
DX: E03.9 Hypothyroidism, unspecified (principal)
CPT/HCPCS: 36415; 80053; 84439; 84443; 85025

== ENCOUNTER 2021-02-14 08:00 | Outpatient (CLI) | payer OTHER ==
[2021-02-14 21:44] LABS: CHLAMYDIA TRACHOMATIS DNA NEGATIVE (NEGATIVE); NEISSERIA GONORRHOEAE DNA NEGATIVE (NEGATIVE); TRICHOMONAS VAGINALIS DNA NEGATIVE (NEGATIVE)
[2021-02-14 22:45] LABS: BACTERIAL VAGINOSIS DNA NEGATIVE (NEGATIVE); CANDIDA GLABRATA DNA NEGATIVE (NEGATIVE); CANDIDA GROUP DNA NEGATIVE (NEGATIVE); CANDIDA KRUSEI DNA NEGATIVE (NEGATIVE); TRICHOMONAS VAGINALIS DNA NEGATIVE (NEGATIVE)
[2021-02-15 12:51] LABS: HEPATITIS C ANTIBODY NON-REACTIVE (NON-REACTIVE)
[2021-02-15 15:47] LABS: HIV AG/AB 4TH GEN NON-REACTIVE (NON-REACTIVE)
[2021-02-16 14:11] LABS: HSV 1 IGG TYPE SPECIFIC AB <0.90 index; HSV 2 IGG TYPE SPECIFIC AB <0.90 index
== END 2021-02-14 23:59 | disposition home or self-care (01) ==
LOC: LAB.N 08:00
PROVIDERS: ATTEND Family Medicine
DX: Z11.3 Encounter for screening for infections with a predominantly sexual mode of transmission (principal)
CPT/HCPCS: 81599; 86592; 86695; 86696; 86803; 87086; 87389; 87491; 87529; 87591; 87661; 87801

== ENCOUNTER 2021-10-02 18:45 | Outpatient (CLI) | payer OTHER ==
[2021-10-02 23:36] LABS: BACTERIAL VAGINOSIS DNA POSITIVE (NEGATIVE); CANDIDA GLABRATA DNA NEGATIVE (NEGATIVE); CANDIDA GROUP DNA NEGATIVE (NEGATIVE); CANDIDA KRUSEI DNA NEGATIVE (NEGATIVE); TRICHOMONAS VAGINALIS DNA NEGATIVE (NEGATIVE)
[2021-10-03 00:41] LABS: CHLAMYDIA TRACHOMATIS DNA NEGATIVE (NEGATIVE); NEISSERIA GONORRHOEAE DNA NEGATIVE (NEGATIVE); TRICHOMONAS VAGINALIS DNA NEGATIVE (NEGATIVE)
== END 2021-10-02 23:59 | disposition home or self-care (01) ==
LOC: LAB 18:45
PROVIDERS: ATTEND Family Medicine
DX: Z11.3 Encounter for screening for infections with a predominantly sexual mode of transmission (principal)
CPT/HCPCS: 87491; 87591; 87661; 87801

== ENCOUNTER 2022-02-27 08:18 | Outpatient (CLI) | payer OTHER ==
--- NOTE | 2022-02-27 14:23 | Ultrasound Report ---
PROCEDURE: Head or Neck Soft Tissue INDICATIONS: HYPOTHYROID TECHNIQUE: Real-time scanning was performed of the thyroid gland, with image documentation. COMPARISON: 03/29/2019 FINDINGS: Right: Thyroid lobe measures 5.2 x 1.9 x 1.6 cm, and is mildly heterogeneous in echotexture. Left: Thyroid lobe measures 5.3 x 1.5 x 1.6 cm, and is mildly heterogeneous in echotexture. Isthmus: 4 mm thick. Nodule number: One Location: Lower pole right thyroid lobe Size: 0.7 x 0.5 x 0.5 cm, previously measures 0.7 x 0.6 x 0.4 cm. Composition: Solid Echogenicity: Hyperechoic Shape: wider than tall. Margins: Smooth Echogenic foci: None Total points: 3 ACR TI-RADS category: Mildly suspicious Additional subtle tiny nodules are seen in bilateral thyroid lobes and measures less than 5 mm in siz e. IMPRESSION: 1. Mildly heterogeneous thyroid parenchymal echotexture with tiny thyroid nodules not significantly c hanged in size compared to previous study in 2019 and likely represent benign process. No new thyroid nodule is seen. No neck soft tissue lymphadenopathy. ACR TI-RADS definitions and recommendations: TI-RADS 1 (benign): 0 points. FNA not needed. TI-RADS 2 (not suspicious): 2 points. FNA not needed. TI-RADS 3 (mildly suspicious): 3 points. "FNA if 2.5 cm or larger, follow up if 1.5 cm or larger (at 1, 3, and 5 years). TI-RADS 4 (moderately suspicious): 4-6 points. "FNA if 1.5 cm or larger, follow up if 1 cm or larger (at 1, 2, 3, and 5 years). TI-RADS 5 (highly suspicious): 7 points or more. "FNA if 1 cm or larger, follow up if 0.5 cm or larger (every year for 5 years). Reviewed by: Gennaro Bardales MD on 02/27/2022 2:22 PM PDT Approved by: Gennaro Bardales MD on 02/27/2022 2:22 PM PDT Station ID: [id number]
== END 2022-02-27 08:19 | disposition home or self-care (01) ==
LOC: DI 08:18
PROVIDERS: ATTEND Physician Assistant Medical
DX: E04.2 Nontoxic multinodular goiter (principal); E03.9 Hypothyroidism, unspecified

== ENCOUNTER 2022-05-02 08:00 | Outpatient (CLI) | payer OTHER ==
[2022-05-02 23:46] LABS: CHLAMYDIA TRACHOMATIS DNA NEGATIVE (NEGATIVE); NEISSERIA GONORRHOEAE DNA NEGATIVE (NEGATIVE)
[2022-05-03 00:36] LABS: BACTERIAL VAGINOSIS DNA POSITIVE (NEGATIVE); CANDIDA GLABRATA DNA NEGATIVE (NEGATIVE); CANDIDA GROUP DNA NEGATIVE (NEGATIVE); CANDIDA KRUSEI DNA NEGATIVE (NEGATIVE); TRICHOMONAS VAGINALIS DNA NEGATIVE (NEGATIVE)
[2022-05-04 06:08] LABS: HSV 1 IGG TYPE SPEC <0.91 index (0.00-0.90); HSV 2 IGG TYPE SPEC <0.91 index (0.00-0.90); RPR Non Reactive (Non Reactive)
[2022-05-05 02:07] LABS: HIV SCREEN 4TH GENERATION Non Reactive (Non Reactive)
[2022-05-05 05:07] LABS: HEPATITIS B SURFACE AB QUANT <3.1 mIU/mL (Immunity>9.9)
[2022-05-05 08:08] LABS: HCV AB <0.1 s/co ratio (0.0-0.9)
== END 2022-05-02 23:59 | disposition home or self-care (01) ==
LOC: LAB.N 08:00
PROVIDERS: ATTEND Emergency Medicine
DX: N76.0 Acute vaginitis (principal); Z11.3 Encounter for screening for infections with a predominantly sexual mode of transmission
CPT/HCPCS: 81514; 86317; 86592; 86695; 86696; 86803; 87389; 87491; 87591; 87661

== ENCOUNTER 2023-01-13 13:26 | Emergency (ER) | payer OTHER ==
[2023-01-13 13:44] LABS: BASOPHILS % (AUTO) 0.3 %; EOSINOPHILS # (AUTO) 0.1 10^3/uL (0.0-0.7); EOSINOPHILS % (AUTO) 0.9 %; HCT - HEMATOCRIT 45.3 % (37.0-47.0); LYMPHOCYTES # (AUTO) 1.6 10^3/uL (1.5-3.5); LYMPHOCYTES % (AUTO) 14.3 %; MEAN CORPUSCULAR HEMOGLOBIN 30.3 pg (27.0-31.0); MEAN CORPUSCULAR HGB CONC 33.1 g/dL (32.0-36.0); MEAN CORPUSCULAR VOLUME 91.5 fL (81.0-99.0); MEAN PLATELET VOLUME 9.2 fL (7.9-10.8); MONOCYTES # (AUTO) 0.9 10^3/uL (0.0-1.0); MONOCYTES % (AUTO) 7.6 %; NEUTROPHILS # (AUTO) 8.7 10^3/uL (1.5-6.6); NEUTROPHILS % (AUTO) 76.6 %; PLT - PLATELET COUNT 339 10^3/uL (130-450); RED BLOOD COUNT 4.95 10^6/uL (4.20-5.40); RED CELL DISTRIBUTION WIDTH 12.3 % (12.0-15.0); WHITE BLOOD COUNT 11.3 x10^3/uL (4.8-10.8)
[2023-01-13 14:01] LABS: ALBUMIN 4.7 g/dL (3.2-5.5); ALBUMIN/GLOBULIN RATIO 1.5 (1.0-2.2); BILIRUBIN,TOTAL 0.7 mg/dL (0.2-1.0); CALCIUM 9.4 mg/dL (8.5-10.3); CREATININE 0.6 mg/dL (0.4-1.0); POTASSIUM 4.6 mmol/L (3.5-5.0); TOTAL PROTEIN 7.9 g/dL (6.7-8.2)
[2023-01-13] MEDS ORDERED: KETOROLAC 30 MG/ML VIAL IVP STA (14:51)
[2023-01-13] MEDS ORDERED: SODIUM CHLORIDE 0.9% 1,000 ML IV STA (14:51)
--- NOTE | 2023-01-13 15:02 | ED Physician Documentation ---
History of Present Illness - Stated complaint Stated Complaint: ABD PX - Chief complaint Chief Complaint: Abd Pain - History obtained from History obtained from: Patient - History of Present Illness Timing: Today Pain level max: 7 Pain level now: 1 - Additonal information Additional information: 27-year-old female presents to the emergency department complaint of abdominal pain. She states that it feels like cramping, mainly in the middle of her abdomen. She states she had diarrhea x1 which did help. No vomiting. No fevers. She states that the pain comes and goes. Nothing seems to make it better or worse. No history of abdominal surgeries. Review of Systems Constitutional: denies: Fever, Chills Respiratory: denies: Cough GI: denies: Nausea, Vomiting, Diarrhea Skin: denies: Rash Musculoskeletal: denies: Neck pain, Back pain Neurologic: denies: Headache PD PAST MEDICAL HISTORY - Past Medical History Past Medical History: Yes Cardiovascular: None Respiratory: None Endocrine/Autoimmune: HyPOthyroidism CONTACT OFFICER: None Psych: Anxiety - Past Surgical History Past Surgical History: No - Present Medications Home Medications: Ambulatory Orders Medication Instructions Recorded Confirmed Levothyroxine Sodium 75 mcg PO DAILY 12/09/19 01/13/23 Dicyclomine [Bentyl] 10 mg PO QID PRN #30 cap 01/13/23 Ibuprofen [Motrin] 800 mg PO Q8H PRN #30 tablet 01/13/23 Ondansetron Odt [Zofran] 4 mg TL Q6H PRN #10 tablet 01/13/23 - Allergies Allergies/Adverse Reactions: Allergies Allergy/AdvReac Type Severity Reaction Status Date / Time amoxicillin Allergy Anaphylaxis Verified 01/13/23 13:29 - Social History Does the pt smoke?: No Smoking Status: Never smoker Does the pt drink ETOH?: Yes Does the pt have substance abuse?: No - Immunizations Immunizations are current?: Yes - POLST Patient has POLST: No PD ED PE NORMAL - Vitals Vital signs reviewed: Yes - General General: Alert and oriented X 3, No acute distress - HEENT HEENT: Moist mucous membranes - Neck Neck: Supple, no meningeal sign - Cardiac Cardiac: RRR, Strong equal pulses - Respiratory Respiratory: No respiratory distress, Clear bilaterally - Abdomen Abdomen: Soft, Non tender, Non distended - Derm Derm: Warm and dry - Neuro Neuro: Alert and oriented X 3 - Psych Psych: Normal mood, Normal affect Results - Vitals Vitals: Vital Signs - 24 hr 01/13/23 01/13/23 01/13/23 13:29 15:03 16:57 Temperature 36.2 C L Heart Rate 84 72 67 Respiratory 16 16 16 Rate Blood Pressure 111/73 109/72 103/64 O2 Saturation 99 97 100 Oxygen O2 Source Room air - Labs Labs: Laboratory Tests 01/13/23 01/13/23 13:39 13:39 WBC 11.3 H RBC 4.95 Hgb 15.0 Hct 45.3 MCV 91.5 MCH 30.3 MCHC 33.1 RDW 12.3 Plt Count 339 MPV 9.2 Neut # (Auto) 8.7 H Lymph # (Auto) 1.6 [place] # (Auto) 0.9 Eos # (Auto) 0.1 Baso # (Auto) 0.0 Absolute Nucleated RBC 0.00 Nucleated RBC % 0.0 Sodium 139 Potassium 4.6 Chloride 102 Carbon Dioxide 28 Anion Gap 9.0 BUN 11 Creatinine 0.6 Estimated GFR (MDRD) 119 Glucose 111 H Calcium 9.4 Total Bilirubin 0.7 AST 87 H ALT 55 Alkaline Phosphatase 70 Total Protein 7.9 Albumin 4.7 Globulin 3.2 Albumin/Globulin Ratio 1.5 Lipase 31 - Rads (name of study) CT abdomen pelvis Relevant Findings:: Final report received, See rad report PD Medical Decision Making - ED course Complexity details: reviewed results, re-evaluated patient, considered differential, d/w patient Reviewed Lab Results: CBC shows a mild leukocytosis, 11,300. Otherwise no significant abnormalities. Minimal elevation of her AST, 87 on chemistry. Otherwise negative. ED course: Patient with what appears to be enteritis on CT scan. She was given IV fluids and IV Toradol. Pain resolved. Feels much better. No vomiting. No significant lab abnormalities. Abdomen is soft, nontender nondistended on serial exam. We will place her on nausea and pain medication for home. Likely viral enteritis. No indication for antibiotics. Patient counseled regarding signs and symptoms for which I believe and urgent re-evaluation would be necessary. Patient with good understanding of and agreement to plan and is comfortable going home at this time This document was made in part using voice recognition software. While efforts are made to proofread this document, sound alike and grammatical errors may occur. Departure - Departure Disposition: 01 Home, Self Care Clinical Impression: Enteritis Condition: Good Instructions: ED Gastroenteritis Non Infec Follow-Up: Cecy Camp PA-C [Primary Care Provider] - Within 1 week Prescriptions: Dicyclomine [Bentyl] 10 mg PO QID PRN #30 cap PRN Reason: Abdominal Pain Ibuprofen [Motrin] 800 mg PO Q8H PRN #30 tablet PRN Reason: PAIN &/OR FEVER Ondansetron Odt [Zofran] 4 mg TL Q6H PRN #10 tablet PRN Reason: Nausea / Vomiting Comments: Your prescriptions were sent to [facility]. Please follow-up with your doctor for further care. Your CT scan shows inflammation in your small intestine consistent with what we call enteritis, this is often a viral infection. Please make sure you are drinking plenty of fluids. This should improve over the next 24 to 48 hours. You can use the Zofran as needed for nausea and vomiting, the Bentyl for cramping and Motrin for cramping. Discharge Date/Time: 01/13/23 17:04
[2023-01-13] MEDS ORDERED: iohexoL-300 100 ML VIAL ONE ×2 (15:04→15:17)
--- NOTE | 2023-01-13 15:34 | CT Report ---
PROCEDURE: ABDOMEN/PELVIS W INDICATIONS: diffuse abd pain, cramping CONTRAST: 140mL Omni 300 TECHNIQUE: After the administration of IV contrast, 5 mm thick sections acquired from the diaphragms to the symp hysis. 5 mm thick coronal and sagittal reformats were acquired. For radiation dose reduction, the f ollowing was used: automated exposure control, adjustment of mA and/or kV according to patient size. COMPARISON: None FINDINGS: Image quality: 03/29/2019 Lower chest: Basal scarring/atelectasis, mild. Overall normal heart size. Solid organs: Liver is unremarkable. Portal vein is patent. Gallbladder is unremarkable. No pathologi c dilation of the biliary tree or pancreatic duct. No splenomegaly. No adrenal nodules. No hydronephr osis. There is contrast excretion in the collecting systems bilaterally. Vessels and lymph nodes: The main portal vein is patent. No pathologic adenopathy by size criteria. N o abdominal aortic aneurysm. Bowel and peritoneum: No evidence of small bowel obstruction. No drainable abscess. No pathologic asc ites. Appendix appears normal. Prominent distal small bowel loops, with minimal wall thickening and f luid-filled contents. Body wall: Tiny fat-containing umbilical hernia. Pelvis: Likely physiologic degree of pelvic free fluid. Overall physiologic appearance of the reprodu ctive organs, but these are not well evaluated on CT overall. Bladder is unremarkable and underdisten ded. Bones: No acute or suspicious osseous finding. There are degenerative changes. Similar coccyx deformi ty. IMPRESSION: Mildly prominent fluid-filled distal loops of small bowel with trace wall thickening could represent infectious or inflammatory enteritis. Normal appendix. No small bowel obstruction. Reproductive organs and pelvic free fluid are not well evaluated on CT, overall appearing physiologic . Consider ultrasound if there is clinical concern. Reviewed by: Jose Alberto Castañeda MD on 01/13/2023 3:33 PM PDT Approved by: Jose Alberto Castañeda MD on 01/13/2023 3:33 PM PDT Station ID: [id number]
[2023-01-13] MEDS ORDERED: iohexoL-300 100 ML VIAL IVP ONE (16:43)
[2023-01-13 16:58] VITALS: BP 103/64
== END 2023-01-13 17:04 | disposition home or self-care (01) ==
LOC: ED 13:26
DX: K52.9 Noninfective gastroenteritis and colitis, unspecified (principal)
CPT/HCPCS: 36415; 74177; 80053; 83690; 85025; 96374; 99283; 99284; Q9967; 81001; 81003; 81025; 84703; 87086

== ENCOUNTER 2023-09-11 14:36 | Outpatient (CLI) | payer OTHER ==
--- NOTE | 2023-09-11 16:29 | XRAY Report ---
PROCEDURE: Knee 3 View LT INDICATIONS: LEFT KNEE PAIN TECHNIQUE: 3 views of the knee(s) were acquired. COMPARISON: None. FINDINGS: Bones: No fractures or dislocations. No suspicious bony lesions. Minimal degenerative change. Soft tissues: No knee joint effusion. No suspicious soft tissue calcifications or masses. IMPRESSION: Early degenerative arthritis. No acute bony abnormality. Reviewed by: Bj Vega MD on 09/11/2023 4:27 PM PST Approved by: Bj Vega MD on 09/11/2023 4:27 PM PST Station ID: [id number]
== END 2023-09-11 14:37 | disposition home or self-care (01) ==
LOC: DI 14:36
PROVIDERS: ATTEND Physician Assistant Medical
DX: M17.12 Unilateral primary osteoarthritis, left knee (principal)

== ENCOUNTER 2023-11-02 08:00 | Outpatient (CLI) | payer OTHER ==
[2023-11-02 20:25] LABS: CHLAMYDIA TRACHOMATIS DNA NEGATIVE (NEGATIVE); NEISSERIA GONORRHOEAE DNA NEGATIVE (NEGATIVE); TRICHOMONAS VAGINALIS DNA NEGATIVE (NEGATIVE)
== END 2023-11-02 23:59 | disposition home or self-care (01) ==
LOC: LAB.WC 08:00
PROVIDERS: ATTEND Obstetrics & Gynecology
DX: Z11.3 Encounter for screening for infections with a predominantly sexual mode of transmission (principal)
CPT/HCPCS: 87491; 87591; 87661

== ENCOUNTER 2024-04-05 07:00 | Outpatient (CLI) | payer SELFPAY ==
[2024-04-05 22:50] LABS: BACTERIAL VAGINOSIS DNA POSITIVE (NEGATIVE); CANDIDA GLABRATA DNA NEGATIVE (NEGATIVE); CANDIDA GROUP DNA NEGATIVE (NEGATIVE); CANDIDA KRUSEI DNA NEGATIVE (NEGATIVE); TRICHOMONAS VAGINALIS DNA NEGATIVE (NEGATIVE)
== END 2024-04-05 23:59 | disposition home or self-care (01) ==
LOC: LAB.S 07:00
PROVIDERS: ATTEND Physician Assistant
DX: Z20.2 Contact with and (suspected) exposure to infections with a predominantly sexual mode of transmission (principal)
CPT/HCPCS: 81514

== ENCOUNTER 2024-04-14 07:00 | Outpatient (CLI) | payer SELFPAY ==
[2024-04-14 23:30] LABS: BACTERIAL VAGINOSIS DNA POSITIVE (NEGATIVE); CANDIDA GLABRATA DNA NEGATIVE (NEGATIVE); CANDIDA GROUP DNA NEGATIVE (NEGATIVE); CANDIDA KRUSEI DNA NEGATIVE (NEGATIVE); TRICHOMONAS VAGINALIS DNA NEGATIVE (NEGATIVE)
== END 2024-04-14 23:59 | disposition home or self-care (01) ==
LOC: LAB.S 07:00
PROVIDERS: ATTEND Registered Nurse
DX: N76.0 Acute vaginitis (principal); A56.00 Chlamydial infection of lower genitourinary tract, unspecified; Z20.2 Contact with and (suspected) exposure to infections with a predominantly sexual mode of transmission
CPT/HCPCS: 81514

== ENCOUNTER 2024-04-14 13:56 | Outpatient (CLI) | payer SELFPAY ==
[2024-04-15 04:10] LABS: HIV SCREEN 4TH GENERATION Non Reactive (Non Reactive)
[2024-04-15 05:14] LABS: HSV 1 IGG TYPE SPEC <0.91 index (0.00-0.90); HSV 2 IGG TYPE SPEC <0.91 index (0.00-0.90)
[2024-04-15 09:11] LABS: RPR Non Reactive (Non Reactive)
[2024-04-16 01:10] LABS: HCV AB Non Reactive (Non Reactive)
== END 2024-04-14 13:57 | disposition home or self-care (01) ==
LOC: LAB 13:56
PROVIDERS: ATTEND Registered Nurse
DX: A56.00 Chlamydial infection of lower genitourinary tract, unspecified (principal); N89.8 Other specified noninflammatory disorders of vagina; R30.0 Dysuria
CPT/HCPCS: 36415; 86592; 86695; 86696; 86803; 87389

== ENCOUNTER 2024-04-27 09:06 | Outpatient (CLI) | payer SELFPAY ==
[2024-04-27 12:56] LABS: CHLAMYDIA TRACHOMATIS DNA NEGATIVE (NEGATIVE); NEISSERIA GONORRHOEAE DNA NEGATIVE (NEGATIVE); TRICHOMONAS VAGINALIS DNA NEGATIVE (NEGATIVE)
== END 2024-04-27 09:07 | disposition home or self-care (01) ==
LOC: LAB 09:06
PROVIDERS: ATTEND Registered Nurse
DX: N76.0 Acute vaginitis (principal); A56.00 Chlamydial infection of lower genitourinary tract, unspecified; Z20.2 Contact with and (suspected) exposure to infections with a predominantly sexual mode of transmission
CPT/HCPCS: 87491; 87591; 87661